=== PATIENT | male | born 1955 | race Caucasian/White ===

== ENCOUNTER 2022-05-08 08:48 | Outpatient (CLI) | payer BC ==
[2022-05-08 11:07] LABS: #Eosinphils 0.2 10x3/uL (0.0-0.5); #Monocytes 0.4 10x3/uL (0.0-1.1); #Neutrophils 2.4 10x3/uL (1.5-8.4); %Basophils 0.8 % (0.0-2.0); %Lymphocytes 35.7 % (18.0-47.0); %Monocytes 8.7 % (0.0-10.0); %Neutrophils 49.6 % (40.0-75.0); Hemoglobin 12.3 g/dL (13.5-17.5); Mean Corpuscular HGB CONC 33.7 g/dL (32.0-36.0); Mean Corpuscular Hemoglobin 32.7 pg (27.0-33.0); Mean Corpuscular Volume 97.1 fl (81.2-95.1); Mean Platelet Volume 10.2 fl (7.4-10.4); Platelet Count 271 10x3/uL (150-450); RBC Distribution Width 11.1 % (11.5-14.5); Red Blood Cell (RBC) Count 3.76 10x6/uL (4.32-5.72); White Blood Cell (WBC) Count 4.8 10x3/uL (3.5-10.5)
[2022-05-08 11:23] LABS: ALT (SGPT) 14 U/L (8-55); AST (SGOT) 18 U/L (5-34); Albumin 4.7 g/dL (3.4-4.8); Alkaline Phosphatase 49 U/L (40-110); Anion Gap 13 mmol/L (10-20); BUN (Urea Nitrogen) 7 mg/dL (8.4-25.7); Calc. Creatinine Clearance 0 mL/min (70-130); Calcium 9.7 mg/dL (7.8-10.44); Carbon Dioxide 26 mmol/L (23-31); Chloride 101 mmol/L (98-107); Estimated GFR 95; Glucose 87 mg/dL (80-115); Potassium 4.8 mmol/L (3.5-5.1); Protein, Total 7.7 g/dL (5.8-8.1); Sodium 135 mmol/L (136-145)
== END 2022-05-08 08:49 | disposition home or self-care (01) ==
LOC: LABBT 08:48
PROVIDERS: ATTEND Surgery
DX: Z01.818 Encounter for other preprocedural examination (principal); Z20.822 Contact with and (suspected) exposure to COVID-19
CPT/HCPCS: 80053; 85025; 87811; 93005; 93010

== ENCOUNTER 2022-05-11 06:02 | Day surgery (SDC) | payer BC ==
[2022-05-09 15:35] VITALS: BMI 21.2
[2022-05-11] MEDS ORDERED: fentaNYL Citrate/PF 100 MCG/2 ML SYRINGE ONE (07:12)
[2022-05-11] MEDS ORDERED: SUGAMMADEX SODIUM 200 MG/2 ML VIAL ONE (07:12)
[2022-05-11] MEDS ORDERED: Bupivacaine/Epinephrine 0.25% 30 ML VIAL ONE (07:35)
[2022-05-11] MEDS ORDERED: Sodium Chloride 0.9% 100 ML ONE (07:49)
[2022-05-11] MEDS ORDERED: CEFAZOLIN 2 GM VIAL ONE (07:49)
[2022-05-11] MEDS ORDERED: Neostigmine Methylsulfate 3 MG/3 ML SYRINGE ONE (07:57)
[2022-05-11] MEDS ORDERED: Glycopyrrolate 0.2 MG/ML 5 ML SYRINGE ONE (07:57)
[2022-05-11] MEDS ORDERED: Ketorolac Tromethamine 30 MG/ML VIAL ONE (07:57)
[2022-05-11] MEDS ORDERED: PROPOFOL 200 MG/20 ML VIAL ONE (07:57)
[2022-05-11] MEDS ORDERED: Dexamethasone 20 MG/5 ML VIAL ONE (07:57)
[2022-05-11] MEDS ORDERED: Rocuronium Bromide 10 MG/ML (10ML VIAL) ONE (07:57)
[2022-05-11] MEDS ORDERED: Lidocaine 1% PF 5 ML VIAL ONE (07:57)
[2022-05-11] MEDS ORDERED: Ondansetron PF 4 MG/2 ML Vial ONE (07:57)
== END 2022-05-11 11:07 | disposition home or self-care (01) ==
LOC: SDC 06:02
PROVIDERS: ATTEND Surgery
PROC: 0YUA4JZ Supplement Bilateral Inguinal Region with Synthetic Substitute, Percutaneous Endoscopic Approach (ICD-10-PCS; principal; 2022-05-11)
PROC: 8E0W4CZ Robotic Assisted Procedure of Trunk Region, Percutaneous Endoscopic Approach (ICD-10-PCS; principal; 2022-05-11)
DX: K40.91 Unilateral inguinal hernia, without obstruction or gangrene, recurrent (principal); K40.90 Unilateral inguinal hernia, without obstruction or gangrene, not specified as recurrent; E78.5 Hyperlipidemia, unspecified; J45.909 Unspecified asthma, uncomplicated; N40.0 Benign prostatic hyperplasia without lower urinary tract symptoms; Z79.82 Long term (current) use of aspirin; Z79.899 Other long term (current) drug therapy
CPT/HCPCS: C1781; J0690; J1100; J1885; J2405; J2704; J3490